=== PATIENT | female | born 2000 | race American Indian/Alaskan Native ===

== ENCOUNTER 2020-10-07 00:41 | Emergency (ER) | payer SELFPAY ==
--- NOTE | 2020-10-07 01:42 | XRay Report ---
CHEST 2 VIEWS 0130 INDICATION / CLINICAL INFORMATION: dyspnea, recent history of pneumothorax COMPARISON: None available. FINDINGS: SUPPORT DEVICES: None. HEART / MEDIASTINUM: No significant abnormality. LUNGS / PLEURA: Bilateral moderate increased interstitial markings are seen in a pattern most suggest ing chronic disease though I do not have prior studies available to determine stability. I cannot com pletely exclude the possibility of acute interstitial infiltrate but I believe this is less likely. T his process is most prominent in the right upper lobe and there is some atelectatic change seen with volume loss. Apparent bullous changes also seen laterally in the right midlung. No pneumothorax is id entified. ADDITIONAL FINDINGS: No significant additional findings. IMPRESSION: Probable chronic changes as discussed above though follow-up or comparison with prior otto dies would be needed to determine stability Signer Name: Santino Hart MD Signed: 10/07/2020 1:38 AM Workstation Name: [id number]
[2020-10-07] MEDS ORDERED: SODIUM CHLORIDE 0.9% 500 ML 500 ML IV ONE (01:55)
[2020-10-07 03:11] LABS: Alanine Aminotransferase 13 units/L (7-56); Albumin 4.2 g/dL (3.9-5); Blood Urea Nitrogen 4 mg/dL (7-17); Calcium 9.6 mg/dL (8.4-10.2); Hemolysis Index 0
[2020-10-07 03:16] LABS: BUN/Creatinine Ratio 6
[2020-10-07 03:18] VITALS: BP 130/80
[2020-10-07 03:20] LABS: Basophils % (Auto) 0.2 % (0.0-1.8); Eosinophils # (Auto) 0.1 K/mm3 (0.0-0.4); Eosinophils % (Auto) 0.6 % (0.0-4.3); Hematocrit 35.7 % (30.3-42.9); Hemoglobin 12.1 gm/dl (10.1-14.3); Lymphocytes # (Auto) 1.1 K/mm3 (1.2-5.4); Lymphocytes % (Auto) 6.9 % (13.4-35.0); Mean Corpuscular HGB Conc 34 % (30-34); Mean Corpuscular Volume 79 fl (79-97); Monocytes # (Auto) 0.8 K/mm3 (0.0-0.8); Monocytes % (Auto) 5.2 % (0.0-7.3); Platelet Count 221 K/mm3 (140-440); Red Blood Count 4.51 M/mm3 (3.65-5.03); Red Cell Distribution Width 14.9 % (13.2-15.2)
[2020-10-07] MEDS ORDERED: ACETAMINOPHEN 325 MG TAB PO ONE (08:36)
== END 2020-10-07 03:00 | disposition left against medical advice (07) ==
LOC: ED 00:41
DX: M54.5 Low back pain (principal); Z53.21 Procedure and treatment not carried out due to patient leaving prior to being seen by health care provider
CPT/HCPCS: 36415; 71046; 80053; 82140; 82805; 84703; 85025; 85610; 87040; 93005